=== PATIENT | male | born 1960 | race Caucasian/White ===

== ENCOUNTER → 2019-05-21 09:12 | Outpatient (CLI) | payer BC ==
[~2019-05-21 09:12] MED LIST: BAYER CHEWABLE81 MG PO; K-TAB10 MEQ PO; LIPITOR10 MG PO; LOPRESSOR25 MG PO; PERCOCET 5-3251 TAB PO; PLAVIX75 MG PO
[2019-07-02 09:41] VITALS: BMI 30.4
== END | disposition home or self-care (01) ==
LOC: D.HCCARDIO 09:12
PROVIDERS: ATTEND Internal Medicine Cardiovascular Disease
DX: R06.00 Dyspnea, unspecified (principal)

== ENCOUNTER 2019-06-18 11:09 | Outpatient (CLI) | payer BC ==
[~2019-06-18] VITALS: Ht 185.4 cm; Wt 102.7 kg
--- NOTE | ~2019-06-18 | HEMODYNAMI ---
PATIENT:LAKISHA SANTAMARIA MEDICAL RECORD: [id number] : 56 LOCATION:[facility] ADMISSION DATE: 06/18/19 Generatedon:06/18/201914:12 Patient name: LAKISHA SANTAMARIA Patient #: [id number] SSN: : 1960 Date of study: 06/18/2019 Page: Of Hemodynamic Procedure Report Patient Data Patient Demographics Procedure consent was obtained First Name: LAKISHA Gender: Male Last Name: HINA : 1960 Patient #: [id number] Age: 59 year(s) Race: Unknown Additional ID: [id number] Contact details [address]: [address] [place] [address] State: [place] City: [place] Zip code: [address] Admission Admission Data Admission Date: 06/18/2019 Admission Time: 11:09 Height (in.): 73 BSA: 2.27 (m2) Height (cm.): 185.42 BMI: 29.87 (kg/m2) Weight (lbs.): 226.42 Weight (kg.): 102.7 Lab Results Lab Result Date: 06/18/2019 Lab Result Time: 0:00 Biochemistry Name Units Result Min Max BUN mg/dl 13 --(--*-)-- 7 18 Creatinine mg/dl 1 --(--*-)-- 0.6 1.3 eGFR ml/min 81 *-(----)-- 90 120 NONAFRICAN CBC Name Units Result Min Max Hemoglobin g/dl 15.7 --(--*-)-- 13.5 17.5 Procedure Procedure Types Cath Procedure Diagnostic Procedure LHC LHC w/Coronaries Sedation Charges Moderate Sedation up to 15 minutes Procedure Description Procedure Date Procedure Date: 06/18/2019 Procedure Start Time: 13:58 Procedure End Time: 14:10 Procedure Staff Name Function Matty Singh MD Performing Physician Giovanni Webster RT Monitor Almita Sosa RN Nurse Samantha Berger RT Scrub Procedure Data Cath Procedure Fluoroscopy Diagnostic fluoroscopy Total fluoroscopy Time: 3.1 time: 3.1 min min Diagnostic fluoroscopy Total fluoroscopy dose: 949 dose: 949 mGy mGy Contrast Material Contrast Material Type Amount (ml) Isovue 300 95 Entry Location Entry Primary Successful Side Size Upsize Upsize Entry Closure Gonzales ccessful Closure Location (Fr) 1 (Fr) 2 (Fr) Remarks Device Remarks Radial Right 6 Fr Mechanical artery Short Compression Estimated blood loss: 10 ml Diagnostic catheters Device Type Used For End Catheter Placement DIAGNOSTIC Amos 110cm Procedure 5Fr catheter ([id number]) Procedure Complications No complications Procedure Medications Medication Administration Route Dosage 0.9% NaCl I.V. 100 ml/hr Oxygen etCO2 Nasal cannula 2 l/min Lidocaine 2% added to field 20 Heparin Flush Bag added to field 2 bags (1000units/500ml NS) Radial Cocktail added to field 1 syringe (Verapamil 2mg/Nitro 400mcg/Heparin 1500units) Versed I.V. 2 mg Fentanyl I.V. 50 mcg Versed I.V. 2 mg Fentanyl I.V. 50 mcg Hemodynamics Rest BSA: 2.27 (m2) HGB: 15.7 (g/dl) O2 Consumption: Estimated: 277.85 (ml/min) O2 Co nsumption indexed: Estimated:122.4 (ml/min/m) Heart Rate: 83 (bpm) Pressure Samples Time Site Value (mmHg) Purpose Heart Use Rate(bpm) 14:00 LV 150/6,21 Snapshot 77 14:01 AO 123/75(93) Pullback 78 14:01 LV 139/8,23 Pullback 78 14:02 AO 106/75(91) Snapshot 78 Gradients Valve Time Site 1 Site 2 Mean SEP/DFP Peak To Heart Use (mmHg) (sec/min) Peak Rate (mmHg) (bpm) Aortic 14:01 LV AO 10 6 16 78 139/8,23 123/75(93) Calculations Valve P-P Mean Valve Index Valve Source Name Gradient Area Flow (cm2) Aortic 16 10 16 10 Snapshots Pre Cath Intra NCS Post Cath Vital Signs Time Heart Resp SPO2 etCO2 NIBP (mmHg) Rhythm Pain Sedation Rate (ipm) (%) (mmHg) Status Level (bpm) 13:45:38 86 12 100 33.7 147/85(124) NSR 0 (11) 10(A) , No pain 13:49:54 76 16 100 33.7 134/80(105) NSR 0 (11) 10(A) , No pain 13:54:11 74 16 100 33.7 134/84(107) NSR 0 (11) 10(A) , No pain 13:58:26 71 17 99 29.9 124/79(94) NSR 0 (11) 10(A) , No pain 14:02:43 75 10 97 38.1 116/68(86) NSR 0 (11) 10(A) , No pain 14:06:57 78 14 98 32.2 116/70(89) NSR 0 (11) 10(A) , No pain 14:11:06 84 16 100 34.4 123/81(99) NSR 0 (11) 10(A) , No pain Medications Time Medication Route Dose Verified Delivered Reason Notes E ffectiveness by by 13:45:50 0.9% NaCl I.V. 100 Matty Almita used for ml/hr Francisco Sosa abstract manager 13:45:57 Oxygen etCO2 2 l/min Matty Almita used for Nasal Francisco Sosa procedure cannula RN 13:46:01 Lidocaine 2% added 20ml Matty Matty for local to vial Francisco Singh MD anesthetic field 13:46:06 Heparin Flush added 2 bags Matty Matty used for Bag to Francisco Singh MD procedure (1000units/500ml field NS) 13:46:11 Radial Cocktail added 1 Matty Matty used for (Verapamil to syringe Francisco Singh MD procedure 2mg/Nitro field 400mcg/Heparin 1500units) 13:56:50 Versed I.V. 2 mg Matty Almita for Francisco Sosa sedation RN 13:56:55 Fentanyl I.V. 50 mcg Matty Almita for Francisco Sosa sedation RN 14:02:00 Versed I.V. 2 mg Matty Almita for Francisco Sosa sedation RN 14:02:03 Fentanyl I.V. 50 mcg Matty Almita for Francisco Sosa sedation groundskeeping maintenance worker Log Time Note 13:14:32 Giovanni Webster RT(R) sent for patient. Start room use. 13:14:33 Time tracking: Regular hours (M-F 7:00 - 5:00) 13:14:36 Plan of Care:Hemodynamics will remain stable., Cardiac rhythm will remain stable., Comfort level will be maintained., Respiratory function will remain adequate., Patient/ family verbilizes understanding of procedure., Procedure tolerated without complication., Recovers from procedure without complications.. 13:39:42 Patient received from Pre/Post Procedure Room to CCL 2 Alert and oriented. Tansferred to table in Supine position. 13:39:46 Signed procedure consent form obtained from patient. 13:39:47 Warm blankets applied, and edgar hugger turned on for patient comfort. 13:39:48 Correct patient and procedure confirmed by team. 13:39:48 ECG and BP/O2 sat monitors applied to patient. 13:44:32 Vital chart was started 13:45:06 Baseline sample Acquired. 13:45:10 Rhythm: sinus rhythm 13:45:11 Full Disclosure recording started 13:45:16 H&P Date Dictated: 06/18/2019 New H&P dictated by physician.. 13:45:17 Pre-procedure instructions explained to patient. 13:45:18 Pre-op teaching completed and patient verbalized understanding. 13:45:20 Family in patients room. 13:45:22 Patient NPO since Midnight. 13:45:23 Is the patient allergic to Iodine/contrast media? No. 13:45:35 Is patient on blood thinner?No 13:45:39 ACC The patient was administered the following blood thiners within the last 24 hours: None 13:45:41 Patient diabetic? No. 13:45:43 Previous problem with sedation/anesthesia? No ? 13:45:44 Snore? Yes 13:45:45 Sleep apnea? No 13:45:46 Deviated septum? No 13:45:47 Opens mouth fully? Yes 13:45:47 Sticks out tongue? Yes 13:45:49 Airway obstruction? No ? 13:45:50 0.9% NaCl 100 ml/hr I.V. was administered by Almita Sosa RN; used for procedure; 13:45:54 Dentures? Yes PARTIAL OUT 13:45:57 Oxygen 2 l/min etCO2 Nasal cannula was administered by Almita Sosa RN; used for procedure; 13:46:00 Pre procedure: right dorsailis pedis pulse 1+ Palpable, but thready & weak; easily obliterated 13:46:01 Lidocaine 2% 20ml vial added to field was administered by Matty Singh MD; for local anesthetic; 13:46:01 Modified Flo's test Ulnar < 7 seconds 13:46:03 Patient pain scale 0/10 ?. 13:46:06 Heparin Flush Bag (1000units/500ml NS) 2 bags added to field was administered by Matty Singh MD; used for procedure; 13:46:11 Radial Cocktail (Verapamil 2mg/Nitro 400mcg/Heparin 1500units) 1 syringe added to field was administered by Matty Singh MD; used for procedure; 13:46:15 IV patent on arrival in right forearm with 0.9% NaCl at [facility]. 13:46:17 Lab results completed and on chart. 13:46:20 Right Radial & Right Groin area was prepped with chlora-prep and draped in sterile fashion 13:46:21 Alarms reviewed by R. N. 13:46:22 Sharps counted by scrub and verified by R.N. 13:46:31 Patient Height : 73 inches 13:46:33 Patient Weight : 226.42 lbs 13:47:42 Lab Result : eGFR NONAFRICAN 81 ml/min 13:47:42 Lab Result : Hemoglobin 15.7 g/dl 13:47:42 Lab Result : BUN 13 mg/dl 13:47:42 Lab Result : Creatinine 1 mg/dl 13:47:52 2) 60-89 Mildly reduced kidney function, and other findings (as for stage 1) point to kidney disease. 13:48:26 Maximum allowable contrast dose (3.7 X eGFR X 0.75)224 ml. 13:48:33 Use device set Radial Dx or PCI 13:48:35 Tegaderm 4 x 4 (1626W) opened to sterile field. 13:48:35 ACIST Manifold (92453) opened to sterile field. 13:48:36 ACIST Hand Control (40771) opened to sterile field. 13:48:38 Bag Decanter () opened to sterile field. 13:48:38 Medline Cath Pack ([id number]) opened to sterile field. 13:48:39 ACIST Syringe (64826) opened to sterile field. 13:48:40 MBrace Wrist Support ([id number]) opened to sterile field. 13:48:41 NEEDLE Cook 21G 4cm Radial (Y90952) opened to sterile field. 13:48:43 EMERALD Guide Wire (231-019) opened to sterile field. 13:48:44 SHEATH 6FR RAIN (0264136) opened to sterile field. 13:53:29 --------ALL STOP TIME OUT------ 13:53:29 Final Timeout: patient, procedure, and site verified with staff and physician. All members of the team are in agreement. 13:53:32 Right Radial & Right Groin site verified by team. 13:53:35 Fire Safety Assessment: A--An alcohol-based skin anteseptic being used preoperatively., C--Open oxygen or nitrous oxide is being used., D--An ESU, laser, or fiber-optic light is being used. 13:53:38 Physical assessment completed. ASA score P 2 - A patient with mild systemic disease as per Matty Singh MD. 13:53:41 Sedation plan: IV Moderate Sedation Medication:Versed, Fentanyl 13:56:50 Versed 2 mg I.V. was administered by Almita Sosa RN; for sedation; 13:56:55 Fentanyl 50 mcg I.V. was administered by Almita Sosa RN; for sedation; 13:57:57 Procedure started. 13:58:03 Local anesthetic to right radial artery with Lidocaine 2% by Matty Singh MD.INITIAL ACCESS ONLY 13:58:25 A 6 Fr Short sheath was inserted into the Right Radial artery 13:59:43 A DIAGNOSTIC Amos 110cm 5Fr catheter ([id number]) was advanced over the wire and used for Procedure. 14:00:30 LV angiography performed. 14:00:32 LV gram done using BANERJEE 14:00:34 LV hemodynamics recorded. 14:00:50 EF : 60 % 14:00:53 Injector settings: Ml/sec: 5, Volume: 15, 14:01:59 LCA angiography performed. 14:02:00 Versed 2 mg I.V. was administered by Almita Sosa RN; for sedation; 14:02:03 Fentanyl 50 mcg I.V. was administered by Almita Sosa RN; for sedation; 14:04:45 RCA angiography performed. 14:04:48 ACCDominant side:Co-Dominant 14:08:15 Catheter removed. 14:08:17 ZEPHYR REGULAR TR BAND (116487) opened to sterile field. 14:08:45 Sheath removed intact; hemostasis achieved with Mechanical Compression to the Right Radial artery. 14:08:47 Procedure ended.(Physican Out) 14:09:02 Fluoroscopy time 03.10 minutes. 14:09:06 Fluoroscopy dose: 949 mGy 14:09:06 Flurop Dose total: 949 14:09:22 Dose Area Product 93448 mGy/cm. 14:09:30 Contrast amount:Isovue 300 95ml. 14:09:32 Maximum allowable dose exceeded? No. 14:09:33 Sharps counted by scrub and verified by R.N. 14:09:34 Insertion/operative site no bleeding no hematoma. 14:09:40 Post Procedure Pulses reassessed and unchanged 14:09:42 Post-procedure physical assessment completed. ASA score P 2 - A patient with mild systemic disease as per Matty Singh MD. 14:09:45 Post procedure rhythm: unchanged. 14:09:47 Estimated blood loss: 10 ml 14:09:49 Post procedure instruction explained to patient.Patient verbalizes understanding. 14:09:49 Patient needs reinforcement of post procedure teaching. 14:09:57 Procedure type changed to Cath procedure, Diagnostic procedure, LHC, LHC w/Coronaries, Sedation Charges, Moderate Sedation up to 15 minutes 14:09:58 Procedure and supply charges have been captured, reviewed, submitted and are correct. 14:10:00 Procedure Complication : No complications 14:10:42 Vital chart was stopped 14:10:42 See physician's report for complete and final results. 14:10:44 Report given to Pre/Post Procedure Room. 14:10:51 Patient transfered to Pre/Post Procedure Room with Stretcher. 14:10:53 Procedure ended. 14:10:53 Full Disclosure recording stopped 14:12:10 End room use (Document Last) Device Usage Item Name Manufacture Quantity Catalog Hospital Part Current Minima l Lot# / Number Charge Number Stock Stock Serial# Code Tegaderm 4 3M 1 1626W [id number] [id number] 5 x 4 (1626W) ACIST Acist 1 30657 309146 268117 172709 5 Manifold Medical (11182) Systems Inc ACIST Hand Acist 1 74296 482066 213959 473167 5 Control Medical (38088) Systems Inc Bag Microtek 1 2001S 948096 82007 638140 5 Decanter Medical Inc. () Medline Medline 1 [id number] 601719 47945 601062 5 Cath Pack ([id number]) ACIST Acist 1 95068 781905 332434 350365 20 Syringe Medical (78570) Systems Inc MBrace Advanced 1 140-0250-00 276692 08984 410319 5 Wrist Vascular Support Dynamics ([id number]) NEEDLE Cook Cook Medical 1 [id number] 229330 845683 796640 5 21G 4cm Radial (Q94326) EMERALD Cardinal 1 157-612 104030 532481 472197 5 Guide Wire Health (271-052) SHEATH 6FR Cardinal 1 3852251 652892 7315202 892138 5 RAIN Health (5199348) DIAGNOSTIC Terumo 1 40-7399 754175 069705 878161 5 Amos 110cm 5Fr catheter (896659) ZEPHYR Cardinal 1 466985 434190 3366515 690085 5 REGULAR TR Health BAND (216743) Signature Audit [place] Stage Time Signature Unsigned Intra-Procedure 06/18/2019 Giovanni Webster 2:12:24 PM RT(R) Signatures Performing Physician : Signature : Matty Singh MD Date : Time : Monitor : Giovanni Webster RT Signature : Date : Time : Nurse : Almita Sosa RN Signature : Date : Time : [facility] [address] [place] [address]
[2019-06-18] MEDS ORDERED: LIPITOR10 MG PO (11:36)
[2019-06-18 11:47] VITALS: BP 141/92; Ht 185.4 cm; Wt 102.7 kg
[2019-06-18 12:09] LABS: HEMATOCRIT 45.4 % (42.0-54.0); HEMOGLOBIN 15.7 g/dL (13.5-17.5); LYMPHOCYTES 31.4 % (15-50); MCH 29.1 pg (26.0-34.0); MCHC 34.6 g/dL (31.0-37.0); MCV 84.1 fL (80.0-100.0); MEAN PLATELET VOLUME 9.7 fL (7.4-10.4); NEUTROPHILS 60.5 % (40-80); PLATELET COUNT 227 10x3/uL (130-400); RDW 13.3 % (11.5-14.5); WBC 7.9 10x3/uL (4.8-10.8)
[2019-06-18 12:14] LABS: ALT (SGPT) 27 U/L (10-68); CALC OSMOLALITY 279 mosm/kg (275-300); CALCIUM 8.4 mg/dL (8.5-10.1); CARBON DIOXIDE 27.8 mmol/L (21.0-32.0); CHLORIDE - SERUM 106 mmol/L (98-107); CHOL - HDL RATIO 2.5 ratio (2.3-4.9); CHOLESTEROL, TOTAL 128 mg/dL (0-200); GLUCOSE 86 mg/dL (74-106); HDL CHOLESTEROL 52 mg/dL (32-96); LDL CHOLESTEROL 63 mg/dL (0-100); LDL-HDL RATIO 1.2 ratio (1.5-3.5); SODIUM 141 mmol/L (136-145); TRIGLYCERIDE 69 mg/dL (30-200); UREA NITROGEN 13 mg/dL (7-18); eGFR NON AFRICAN AMERICAN 81 mL/min (90-120)
--- NOTE | 2019-06-18 14:33 | NUR ---
RECEIVED PT FROM SCHOOL AIDE. PT DENIES ANY C/O PAIN OR NAUSEA. RESP WITH EASE ON O2 AT 1 LPM VIA NC. Z BAND IS CDI TO RIGHT WRIST, NO BLEEDING OR HEMATOMA NOTED. FINGERS WARM AND CAP REFILL IS BRISK. WRIST IMMOBILIZER IN PLACE. NSR, RATE IS 71. BP IS 120/73. CALL LIGHT IN REACH.
--- NOTE | 2019-06-18 14:38 | NUR ---
SANDWICH AND PO FLUIDS AT BEDSIDE, PT ALERT AND VISITING WITH EX- IN ROOM. Z BAND CDI, FINGERS WARM AND CAP REFILL IS BRISK. NSR, RATE IS 72, BP 119/77
--- NOTE | 2019-06-18 15:06 | NUR ---
PT ALERT, DENIES ANY C/O. Z BAND IS CDI, FINGERS WARM AND CAP REFILL IS BRISK. VSS. DR LOPEZ ROUNDING WITH PT AND PT'S FAMILY MEMBER IN THE ROOM.
--- NOTE | 2019-06-18 15:36 | NUR ---
2 CC OF AIR WEANED FROM Z BAND WITH NO BLEEDING NOTED. FINGERS WARM AND CAP REFILL IS BRISK. VSS, PT SITTING UP IN BED, VISITING WITH FAMILY MEMEBER AT BEDSIDE.
--- NOTE | 2019-06-18 15:38 | NUR ---
PT HAS DEB SANDWICH WITH NO C/O NAUSEA.
--- NOTE | 2019-06-18 15:47 | NUR ---
3 CC OF AIR WEANED FROM Z BAND WITH NO BLEEDING NOTED. FINGERS WARM AND CAP REFILL IS BRISK. PT IS ALERT AND DENIES ANY C/O. VISITING WITH FAMILY MEMBER AT BEDSIDE.
--- NOTE | 2019-06-18 16:00 | NUR ---
ALL REMAINING AIR WEANED FROM Z BAND WITH NO BLEEDING OR HEMATOMA NOTED. FINGERS WARM AND PULSES PALPABLE. PT IS ALERT AND DENIES ANY C/O.
--- NOTE | 2019-06-18 16:20 | NUR ---
IV HAS BEEN DC'D WITH CATH INTACT AND NURSE ASSISTED PT WITH DRESSING FOR DC TO HOME. 2X2 AND TEGADERM ARE CDI TO CATH SITE. WRIST IMMOBILIZER IN PLACE. PULSES PALPABLE, PT DENIES ANY NV DEFICIT.
--- NOTE | 2019-06-18 16:30 | NUR ---
DC INSTRUCTIONS REVIEWED WITH PT AND FAMILY MEMBER, KAILASH, VERBALIZE UNDERSTANDING OF DC INSTRUCTIONS. PT ESCORTED TO PRIVATE AUTO VIA WC BY NURSE WITH KAILASH DRIVING HIM HOME. PT HAS ALL PERSONAL BELONGINGS AND DC INSTRUCTIONS AT TIME OF DISCHARGE.
== END 2019-06-18 16:30 | disposition home or self-care (01) ==
LOC: D.CATH 11:09
PROVIDERS: ATTEND Internal Medicine Cardiovascular Disease
DX: I20.0 Unstable angina (principal); R94.30 Abnormal result of cardiovascular function study, unspecified; Z01.812 Encounter for preprocedural laboratory examination

== ENCOUNTER 2019-06-27 08:30 | Inpatient (IN) | payer BC ==
[~2019-06-27] VITALS: Ht 182.9 cm; Wt 98.6 kg
[~2019-06-27 08:30] MED LIST changes: -BAYER CHEWABLE81 MG PO; -K-TAB10 MEQ PO; -LOPRESSOR25 MG PO; -PERCOCET 5-3251 TAB PO; -PLAVIX75 MG PO
[2019-06-27 10:48] LABS: BASOPHILS 0.4 % (0-2); EOSINOPHILS 1.8 % (0-7); HEMATOCRIT 46.1 % (42.0-54.0); HEMOGLOBIN 16.1 g/dL (13.5-17.5); IMMATURE GRANULOCYTES 0.2 % (0-5); LYMPHOCYTES 27.1 % (15-50); MCH 29.7 pg (26.0-34.0); MCHC 34.9 g/dL (31.0-37.0); MCV 84.9 fL (80.0-100.0); MEAN PLATELET VOLUME 9.9 fL (7.4-10.4); MONOCYTES 7.2 % (2-11); NEUTROPHILS 63.3 % (40-80); PLATELET COUNT 255 10x3/uL (130-400); RBC 5.43 10x6/uL (4.20-6.10); RDW 13.1 % (11.5-14.5); WBC 8.3 10x3/uL (4.8-10.8)
[2019-06-27 10:57] LABS: APPEARANCE CLEAR (CLEAR); BILIRUBIN NEGATIVE (NEGATIVE); COLOR YELLOW (YELLOW); GLUCOSE NEGATIVE (NEGATIVE); KETONE NEGATIVE (NEGATIVE); NITRITE NEGATIVE (NEGATIVE); PROTEIN NEGATIVE (NEGATIVE); SPECIFIC GRAVITY 1.015 (1.005-1.020); UROBILINOGEN NORMAL (NORMAL)
[2019-06-27 10:59] LABS: APTT 30.7 SECONDS (22.8-39.4); INR 1.12 (0.85-1.17); PROTIME 13.9 SECONDS (11.6-15.0)
[2019-06-27 11:32] LABS: ALBUMIN 3.8 g/dL (3.4-5.0); ALKALINE PHOSPHATASE 75 U/L (46-116); ALT (SGPT) 27 U/L (10-68); CALC OSMOLALITY 281 mosm/kg (275-300); CALCIUM 8.5 mg/dL (8.5-10.1); CARBON DIOXIDE 30.4 mmol/L (21.0-32.0); CHLORIDE - SERUM 106 mmol/L (98-107); CHOLESTEROL, TOTAL 134 mg/dL (0-200); CREATININE - SERUM 0.8 mg/dL (0.6-1.3); GLUCOSE 85 mg/dL (74-106); PHOSPHOROUS 3.8 mg/dL (2.5-4.9); POTASSIUM - SERUM 4.9 mmol/L (3.5-5.1); PROTEIN - SERUM 6.8 g/dL (6.4-8.2); SODIUM 142 mmol/L (136-145); T4 THYROXIN - FREE 0.91 ng/dL (0.76-1.46); UREA NITROGEN 13 mg/dL (7-18); URIC ACID 4.6 mg/dL (2.6-7.2); eGFR NON AFRICAN AMERICAN > 90 mL/min (90-120)
[2019-07-01] VITALS (56 sets, daily range): BP systolic 92–133; BP diastolic 53–90; BMI 29.5; BMI 29.9
[2019-07-01] MEDS ORDERED: BAYER CHEWABLE81 MG PO (05:38)
--- NOTE | 2019-07-01 10:00 | NUR ---
PT ARRIVED FROM THE OR. PT HOOKED TO ICU MONITORS. PT ON SIMPLE MASK AT 10L VIA NC. NSR ON THE MONITOR. VSS AT THIS TIME. RIGHT IJ CVL NOTED WITH PLASMALYTE INFUSING. MIDSTERNAL AND SUBSTERBAL INCISION/DRESSING C/D/I. CT X2 Y'D AND CONNECTED TO 1 TUBE NOTED HOOKED TO 20 OF H2O SUCTION WITH NO AIR LEAK. LEFT MARIAH DRAIN COMPRESSED WITH BLOODY DRAINAGE NTOED. RIGHT RADIAL RYAN NOTED WITH A <3 SECOND CAP REFILL. FC NOTED WITH CLEAR, YELLOW URINE. PT AWAKE BUT VERY DROWSEY. VSS. CALL LIGHT IN REACH. WILL CONT POC
--- NOTE | 2019-07-01 10:30 | NUR ---
START LOW DOSE NITRO PER DR IKM
--- NOTE | 2019-07-01 14:57 | NUR ---
PT AWAKE AND CONVERSANT. VSS. TOLERATING PO FLUIDS WELL. DENIES PAIN. PULLING ABOUT 2000 ON HIS IS. CALL LIGHT IN REACH POC.
--- NOTE | 2019-07-01 17:10 | NUR ---
DR KIM AT THE PTS BEDSIDE. NO NEW ORDERS AT THIS TIME.
--- NOTE | 2019-07-01 18:40 | NUR ---
PT DANGLED AT THE BEDSIDE. PT DENIES SOB/DIZZINESS. VSS WHILE DANGLEING AND REMAINED IN NSR. WILL CONT POC.
--- NOTE | 2019-07-01 19:15 | NUR ---
Received patient resting in bed with eyes open, assessment completed per flowsheet. Patient AO x4, answers appropriately/follows instructions. S1/S2 noted NSR on telemetry, rythmic and regular. Breathing is shallow/unlabored on 2L via NC with O2 sat 98%, lung sounds clear bilateral upper and mid with diminished lower. Midline sternum/substernal incision dressing CDI. CT x2 to 20 cm suction with bloody draianage, no air leak noted. David x1 with small bloody drainage, compressed with dressing CDI. Criticore secured, small clear yellow drainage noted. R radial A-line with good waveform, wrist protector in use. Remaining pulses palpable with cap refill < 3 sec, skin warm/dry. STORE OPERATIONS ASSOCIATE in use for pain mgmt, repositioned for comfort. Denies needs at this time, see flowsheet for details. All VSS and will continue to monitor.
--- NOTE | 2019-07-01 21:00 | NUR ---
HS meds given without difficulty, denies pain or other needs at this time. Patient perfomed 1750 on IS, good cough noted. No further needs at this time, all VSS and will continue to monitor.
--- NOTE | 2019-07-01 23:05 | NUR ---
Reassessment completed per flowsheet, no changes noted from previous assessment. S1/S2 noted NSR on telemetry, rythmic and regular. Breathing is shallow/unlabored on 2L via NC with O2 sat 97%, lung sounds clear bilateral upper and mid with diminished lower. Midline sternum/substernal incision dressing CDI, no bleeding/drainage noted. CT x2 to 20 cm suction with small bloody drainage, David x1 substernal with small bloody drainage. R radial A-line with good waveform, wrist protector in use. Remaining pulses palpable with cap refill < 3 sec, skin warm/dry. Denies pain or other needs at this time, see flowsheet for details. All VSS and will continue to monitor.
[2019-07-02] VITALS (42 sets, daily range): BP systolic 101–127; BP diastolic 56–79; Ht 182.9 cm; Wt 98.6 kg
--- NOTE | 2019-07-02 01:00 | NUR ---
Patient resting in bed with eyes closed, no s/s of distress at this time. HEALTHCARE MANAGEMENT CONSULTANT in use for pain mgmt, repositioned for comfort. Denies further needs and will continue to monitor.
--- NOTE | 2019-07-02 01:30 | NUR ---
Patient awakened C/O slight nausea after using MUSHROOM PACKER, PRN Zofran given as ordered and will continue to monitor.
--- NOTE | 2019-07-02 02:58 | NUR ---
Reassessment completed per flowsheet, no changes noted from previous assessment. S1/S2 noted NSR on telemetry, rythmic and regular. Breathing is shallow/unlabored on room air with O2 sat 95%, lung sounds clear bilateral upper and mid with diminished lower. Midline sternum/Substernal incision dressing CDI, no bleeding or drainage noted. Substernal CT x2 to 20cm suction with no air leak noted, L substernal David x1 with small blood noted. All pulses palpable with cap refill < 3 sec, skin warm/dry. METAL FABRICATION SUPERVISOR in use for pain mgmt, see flowsheet for details. All VSS and will continue to monitor.
[2019-07-02 05:54] LABS: HEMATOCRIT 39.4 % (42.0-54.0); HEMOGLOBIN 13.2 g/dL (13.5-17.5); MCH 28.8 pg (26.0-34.0); MCHC 33.5 g/dL (31.0-37.0); MEAN PLATELET VOLUME 9.9 fL (7.4-10.4); RBC 4.58 10x6/uL (4.20-6.10); RDW 13.5 % (11.5-14.5); WBC 19.1 10x3/uL (4.8-10.8)
[2019-07-02 06:13] LABS: ALBUMIN 2.8 g/dL (3.4-5.0); ALKALINE PHOSPHATASE 56 U/L (46-116); ALT (SGPT) 18 U/L (10-68); BILIRUBIN - TOTAL 0.59 mg/dL (0.2-1.3); CALC OSMOLALITY 280 mosm/kg (275-300); CALCIUM 7.8 mg/dL (8.5-10.1); CARBON DIOXIDE 27.2 mmol/L (21.0-32.0); CHLORIDE - SERUM 105 mmol/L (98-107); CREATININE - SERUM 0.8 mg/dL (0.6-1.3); GLUCOSE 123 mg/dL (74-106); PROTEIN - SERUM 5.6 g/dL (6.4-8.2); SODIUM 140 mmol/L (136-145); UREA NITROGEN 14 mg/dL (7-18); eGFR NON AFRICAN AMERICAN > 90 mL/min (90-120)
--- NOTE | 2019-07-02 07:30 | NUR ---
UP IN CHAIR AT BEDSIDE, WITH ASSISTANCES OF 2 NURSE. TOLERATED FAIR. ALERT ABLE TO STAND WITH MINIMAL ASSISTANCES. CHEST TUBES X 2 INTACT TO 20 CM SUCTION. MARIAH DRAIN COMPRESSED WITH BLOODY DRAINAGE. DRESSING MID CHEST AND SUBSTERNAL DRY AND INTACT. JHA CATH PATENT DRAINING CLEAR NEERU URINE. LEFT IJ DOUBLE LUMEN INFUSING WITH ZINCEF AND PLAMALYTE AT 100 ML HOUR. MONITOR SR. DILAUDID STORAGE WHARFAGE CLERK CONTROLLING PAIN.
--- NOTE | 2019-07-02 08:00 | NUR ---
NO DISTRESS. TOLERATING UP IN CHAIR WELL.
--- NOTE | 2019-07-02 09:00 | NUR ---
REGULAR BREAKFAST SERVED. ATE FEW BITES. NO NAUSEA. NOT PASSING GAS
--- NOTE | 2019-07-02 10:00 | NUR ---
HERE. UPDATE GIVEN. JAYLAN WITH DR. KIM OFFICE HERE. ORDERS RECEIVED
--- NOTE | 2019-07-02 11:15 | NUR ---
RYAN RIGHT RADIAL REMOVED. PRESSURE HELD. NO BLEEDING OR HEMATOMA AT SITE. PRESSURE DRESSING PLACE. RADIAL PULSE PALABLE. LUNCH TRAY SERVED
--- NOTE | 2019-07-02 12:00 | NUR ---
ZINCEF COMPLETED. RIGHT IJ SALINE LOCKED. PATIENT TOLERATED WELL ATE FEW BITES AT LUNCH. NO DISTRESS.
--- NOTE | 2019-07-02 13:00 | NUR ---
DR. KIM HERE ORDERS RECEIVED TO DISCONTINUE JHA CATH. PATIENT TOLERATAED. FAIR. CHEST TUBES TO WATER SEAL DRAINAGE.
--- NOTE | 2019-07-02 13:50 | OP ---
PATIENT NAME: LAKISHA SANTAMARIA MEDICAL RECORD: [id number] :56 LOCATION:D.CVI D.CV07 ADMISSION DATE:07/01/19 SURGEON: MICHEAL KIM MD DATE OF OPERATION: 07/01/2019 SURGEON: Micheal Kim MD CHILD & ADOLESCENT PSYCHIATRIST: Lev Ribeiro. OPERATION PERFORMED: Off pump coronary artery bypass graft times 1 (left internal mammary artery to LAD). 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 ANESTHESIA: General endotracheal anesthesia. ESTIMATED BLOOD LOSS: 200 cc. COMPLICATIONS: None. SPECIMENS: None. CONDITION: Stable. DISPOSITION: CV ICU. OPERATIVE FINDINGS: 1. Good quality left internal mammary artery, normal AMIE with trace mitral and tricuspid regurgitation. 2. LAD 2.0 mm, competitive LAD flow noted. Good Doppler signal after anastomosis. OPERATIVE INDICATION: Proximal LAD stenosis with myocardial bridging, not amenable to percutaneous intervention. DESCRIPTION OF PROCEDURE: The patient was brought to the operating suite. General anesthesia was obtained, the patient was prepped and draped. Median sternotomy incision was made. Subcutaneous tissue divided with electrocautery. Sternum was divided with a saw. Left hemisternum was elevated. Pleural cavity was entered. Left internal mammary artery and vein was taken down the pedicle graft. Sterile tourniquet was placed. Heparin was given. The internal mammary was divided and made ready for anastomosis. Pericardium was opened. Heart was elevated on a laparotomy pad. The vessel was stabilized with the off pump retraction system and after the activated clotting time was appropriately elevated, the vessel was inflow occluded and then opened, briefly allowed to restore flow. Good competitive flow was noted. Standard distal anastomosis was performed. Flow was restored. Good Doppler signal was noted and flow was restored. Pedicle was tacked to the heart. Protamine was given. An opening was made in the left pericardium to allow the internal mammary artery to lay OPERATIVE REPORT [id number] LAKISHA SANTAMARIA slightly to the left and then the left chest was evacuated. Lung was reinflated. Drains were placed in the mediastinum and left pleural cavity. Pericardial fat was loosely reapproximated. The internal mammary harvest site was inspected for bleeding. Sternum was closed with wires. Fascia was closed. Subcutaneous tissue was closed. Skin was closed. Dermabond was placed. Needle and sponge counts were reported as correct. The patient was taken to the ICU in stable condition. TRANSINT:[id number] Voice Confirmation ID: [id number] DOCUMENT ID: [id number] MICHEAL KIM MD at 1350 CC: OSVALDO LOPEZ M.D. and NORMA ROCA MD [id number] DICTATION DATE: 07/01/19 1023 HOUSE STEWARD/STEWARDESS: 07/01/19 1241 ADM IN [place] [id number] [place] [address]
--- NOTE | 2019-07-02 14:00 | NUR ---
PHYSICAL THERAPY HERE AMBULATED IN [place]. TOLERATED FAIR. PAIN MEDS EFFECTIVE.
--- NOTE | 2019-07-02 14:27 | NUR ---
SITTING IN CHAIR AT BEDSIDE NAPPING. NO DISTRESS NOTED
--- NOTE | 2019-07-02 16:00 | NUR ---
HERE, DR. KIM HERE TALKED WITH PATIENT AND . NO DISTRESS. RESP DEEP AND REGULAR. CHEST TUBES TO WATER SEAL DRAINAGE.
--- NOTE | 2019-07-02 18:00 | NUR ---
RETURNED TO BED. STANDING WITH MINIMAL ASSISTANCES. WALKED TO BATHROOM UNABLE TO VOID. URINAL AT BEDSIDE. CHEST TUBES INTACT TO WATER SEAL DRAINAGE. SERSANG DRAINAGE. MARIAH BULB COMPRESSED. SCD TO LOWER LEGS. RIGHT IJ CENTRAL LINE SALINE LOCKED. PAIN MEDS GIVEN. DRESSINGS DRY AND INTACT. HEAD OF BED ELEVATED 30 DEGREE. NURSE CALL LIGHT IN HAND
--- NOTE | 2019-07-02 19:00 | NUR ---
REPORT RECEIVED FROM OFF GOING NURSE. PT IS LAYING IN BED AT THIS TIME WITH EYES CLOSED. WAKENS EASILY. PT DENIES NEEDS AT THIS TIME. INITIAL ASSESSMENT COMPLETED, SEE FLOWSHEET FOR DETAILS. NO SIGNS OF ACUTE DISTRESS. VSS. WILL CONTINUE TO MONITOR.
--- NOTE | 2019-07-02 21:00 | NUR ---
PT IS LAYING IN BED WITH EYES CLOSED AT THIS TIME. PM MEDICATIONS GIVEN, SEE EMAR FOR DETAILS. PT DENIES NEEDS AT THIS TIME. NO SIGNS OF ACUTE DISTRESS. WILL CONTINUE TO MONITOR.
--- NOTE | 2019-07-02 23:00 | NUR ---
REASSESSMENT COMPLETED, SEE FLOWSHEET FOR DETAILS. PT IS LAYING IN BED WITH EYES CLOSED. NO NEEDS VOICED AT THIS TIME. NO SIGNS OF ACUTE DISTRESS. WILL CONTINUE TO MONITOR.
[2019-07-03] VITALS (24 sets, daily range): BP systolic 109–146; BP diastolic 70–99
--- NOTE | 2019-07-03 01:00 | NUR ---
PT IS RESTING IN BED WITH EYES CLOSED. NO NEEDS VOICED. NO SIGNS OF ACUTE DISTRESS. WILL CONTINUE TO MONITOR.
--- NOTE | 2019-07-03 03:00 | NUR ---
REASSESSMENT COMPLETED, SEE FLOWSHEET FOR DETAILS. PT IS RESTING IN BED WITH EYES CLOSED. NO NEEDS VOICED. NO SIGNS OF ACUTE DISTRESS. WILL CONTINUE TO MONITOR.
--- NOTE | 2019-07-03 05:00 | NUR ---
PT IS RESTING IN BED WITH EYES CLOSED AT THIS TIME. NO NEEDS VOICED. NO SIGNS OF ACUTE DISTRESS. WILL CONTINUE TO MONITOR.
[2019-07-03 06:13] LABS: MCH 28.8 pg (26.0-34.0); MCHC 33.3 g/dL (31.0-37.0); MCV 86.5 fL (80.0-100.0); RBC 4.51 10x6/uL (4.20-6.10); RDW 13.7 % (11.5-14.5); WBC 18.1 10x3/uL (4.8-10.8)
[2019-07-03 06:29] LABS: ALBUMIN 2.5 g/dL (3.4-5.0); ALKALINE PHOSPHATASE 59 U/L (46-116); ALT (SGPT) 19 U/L (10-68); BILIRUBIN - TOTAL 0.58 mg/dL (0.2-1.3); CALC OSMOLALITY 279 mosm/kg (275-300); CALCIUM 8.3 mg/dL (8.5-10.1); CARBON DIOXIDE 29.8 mmol/L (21.0-32.0); CHLORIDE - SERUM 104 mmol/L (98-107); CREATININE - SERUM 0.8 mg/dL (0.6-1.3); GLUCOSE 120 mg/dL (74-106); PROTEIN - SERUM 5.6 g/dL (6.4-8.2); SODIUM 140 mmol/L (136-145); UREA NITROGEN 12 mg/dL (7-18); eGFR NON AFRICAN AMERICAN > 90 mL/min (90-120)
--- NOTE | 2019-07-03 07:54 | NUR ---
REPORT RECEIVED. PT WAS GETTING BREATHING TREATMENT AT TIME OF BEDSIDE. LATER ASSISTED FROM BED TO CHAIR WITH NO DIFFICULTY. BREAKFAST TRAY HAS BEEN PROVIDED. PT DENIES ANY ADDIONAL NEEDS. CALL LIGHT IN REACH.
--- NOTE | 2019-07-03 13:43 | NUR ---
DR ROCA AT BEDSIDE AT THIS TIME WITH PT AND
--- NOTE | 2019-07-03 17:46 | MORECARE ---
CASE MANAGEMENT DISCHARGE SUMMARY PATIENT: LAKISHA SANTAMARIA UNIT: [id number] ADM DATE: 07/01/19 AGE: 59 : 56 SEX: M [facility] AUTHOR: MANDA HONEYCUTT PHYSICIAN: REFERRING PHYSICIAN: AIDEN KIM MD DATE OF SERVICE: 07/03/19 Discharge Plan Patient Name: LAKISHA SANTAMARIA Facility: [facility]:[place] : 1960 Planned Disposition: Home Anticipated Discharge Date: Discharge Date: Expected LOS: Initial Reviewer: [email or web address] Initial Review Date: 07/03/2019 Generated: 07/03/19 6:46 pm Patient Name: LAKISHA SANTAMARIA Page [id number] at 174 All edits/amendments must be made on the electronic document DICTATION DATE: 07/03/191745 ENGINEERING DESIGN MANAGER: GAYATRI 07/03/191745 RPT#: [id number] DC DATE: STATUS: ADM IN [facility] [address] [place] [address] END OF REPORT
--- NOTE | 2019-07-03 17:56 | MORECARE ---
CASE MANAGEMENT DISCHARGE SUMMARY PATIENT: LAIKSHA SANTMAARIA UNIT: [id number] ADM DATE: 07/01/19 AGE: 59 : 56 SEX: M ROOM/BED: D[facility] AUTHOR: MANDA HONEYCUTT PHYSICIAN: REFERRING PHYSICIAN: AIDEN KIM MD DATE OF SERVICE: 07/03/19 Discharge Plan Patient Name: LAKISHA SANTAMARIA Facility: [facility]:[place] : 1960 Planned Disposition: Home Anticipated Discharge Date: Discharge Date: Expected LOS: Initial Reviewer: [email or web address] Initial Review Date: 07/03/2019 Generated: 07/03/19 6:56 pm Comments DCP- Discharge Planning Updated by [email or web address]: Mally Sadler on 07/03/19 4:[address] Patient Name: LAKISHA SANTAMARIA Admission Status: Elective Accout number: [id number] Admission Date: 07-01-2019 : 1960 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 Patient lives at home with his significant other Kailash where he is independent with his care and plans to return there upon discharge. Patient feels this would be a safe discharge. CM discussed availability / needs of home health and medical equipment. Patient denies any discharge needs at this time. Patient states he will have his family drive him home upon discharge. CM will continue to follow and assist as needed with discharge planning / needs. Digital Measurement Advisor: Mally Sadler DCPIA - Discharge Planning Initial Assessment Updated by [email or web address]: Mally Sadler on 07/03/19 5:53 pm * Is the patient Alert and Oriented? Yes * How many steps to enter\exit or inside your home? 6-14 * PCP ABELINO * Pharmacy [facility] * Preadmission Environment Home with Family * ADLs Independent * Other Equipment [place] * List name and contact numbers for known caregivers / representatives who currently or will assist patient after discharge: KAILASH VICKI - [facility] OTHER- [phone], * Verbal permission to speak to the caregivers and representatives has been obtained from the patient. Yes * Community resources currently utilized None * Additional services required to return to the preadmission environment? No * Can the patient safely return to the preadmission environment? Yes * Has this patient been hospitalized within the prior 30 days at any hospital? No Last DP export: 07/03/19 4:46 p Patient Name: LAKISHA SANTAMARIA Page [id number] at 1756 All edits/amendments must be made on the electronic document DICTATION DATE: 07/03/191755 HYPERBARIC NURSE: GAYATRI 07/03/191755 RPT#: [id number] DC DATE: STATUS: ADM IN [facility] [address] [place] [address] END OF REPORT
--- NOTE | 2019-07-03 19:00 | NUR ---
REPORT RECIEVED, PT AAOX4, RESTING IN BED. ASSESSMENT COMPLETED, SEE FLOWSHEET. PT ON ROOM AIR, VITALS STABLE, WILL CONTINUE TO MONITOR.
--- NOTE | 2019-07-03 21:00 | NUR ---
PT REPORTS FEELING "FLUSHED," TEMP TAKEN, 98.4 ORALLY. NO ACUTE DISTRESS NOTED.
--- NOTE | 2019-07-03 23:00 | NUR ---
PT RESTING IN BED, AAOX4. NO ACUTE DISTRESS NOTED. WILL CONTINUE TO MONITOR.
[2019-07-04] VITALS (21 sets, daily range): BP systolic 107–140; BP diastolic 73–98
--- NOTE | 2019-07-04 01:00 | NUR ---
PT RESTING IN BED, VITALS STABLE. WILL CONTINUE TO MONITOR.
--- NOTE | 2019-07-04 03:00 | NUR ---
PT AAOX4, NO ACUTE DISTRESS NOTED.
[2019-07-04 05:46] LABS: HEMATOCRIT 40.4 % (42.0-54.0); HEMOGLOBIN 13.6 g/dL (13.5-17.5); MCH 28.9 pg (26.0-34.0); MCHC 33.7 g/dL (31.0-37.0); MCV 85.8 fL (80.0-100.0); MEAN PLATELET VOLUME 9.9 fL (7.4-10.4); RBC 4.71 10x6/uL (4.20-6.10); RDW 13.5 % (11.5-14.5); WBC 14.8 10x3/uL (4.8-10.8)
[2019-07-04 06:17] LABS: ALBUMIN 2.6 g/dL (3.4-5.0); ALKALINE PHOSPHATASE 69 U/L (46-116); BILIRUBIN - TOTAL 0.71 mg/dL (0.2-1.3); CALC OSMOLALITY 276 mosm/kg (275-300); CALCIUM 8.3 mg/dL (8.5-10.1); CARBON DIOXIDE 28.5 mmol/L (21.0-32.0); CHLORIDE - SERUM 102 mmol/L (98-107); CREATININE - SERUM 0.8 mg/dL (0.6-1.3); GLUCOSE 113 mg/dL (74-106); POTASSIUM - SERUM 3.8 mmol/L (3.5-5.1); PROTEIN - SERUM 6.2 g/dL (6.4-8.2); SODIUM 138 mmol/L (136-145); UREA NITROGEN 12 mg/dL (7-18); eGFR NON AFRICAN AMERICAN > 90 mL/min (90-120)
[2019-07-04 06:23] LABS: ALT (SGPT) 24 U/L (10-68)
--- NOTE | 2019-07-04 10:04 | NUR ---
Nutrition Follow-up: CABG on 07/01 Diet: Regular PO intake: 50-75% Wt: 216# Last BM: 06/30 Labs noted: Glu 113 Meds noted: Ulices Steward May consider cardiac diet. RD following.
[2019-07-04] MEDS ORDERED: PERCOCET 5-3251 TAB PO (10:36)
--- NOTE | 2019-07-04 17:17 | NUR ---
0700-RECIEVED AWAKE ALERT-UP IN CHAIR-ROOM AIR 1030-DR KIM AT [facility] AND SPOKE WITH PT REGARDIGN CURRENT PROGRESS AND PLAN OF ACTION-PT APPEARS TO UNDERSTAND 1330-AMBULATED WITH PHYSICAL THERAPY AND ASSISTED TO BED- 1700-FAMILY AT BEDSIDE-
--- NOTE | 2019-07-04 19:00 | NUR ---
REPORT RECIEVED, PT RESTING IN BED, AAOX4. ASSESSMENT COMPLETED, SEE FLOWSHEET. RT IJ CVL TO SL, CDI. DENIES SOB, VITALS STABLE. WILL CONTINUE TO MONITOR.
--- NOTE | 2019-07-04 21:09 | NUR ---
PM MEDS ADMINISTERED WITHOUT DIFFICULTY. PT IS VERY TALKATIVE, NO SIGNS OF ACUTE DISTRESS NOTED, WILL CONTINUE TO MONITOR.
--- NOTE | 2019-07-04 23:00 | NUR ---
PT RESTING IN BED, NO ACUTE DISTRESS NOTED.
[2019-07-05] VITALS (11 sets, daily range): BP systolic 104–123; BP diastolic 70–84
--- NOTE | 2019-07-05 01:00 | NUR ---
PT AAOX4, VITALS STABLE, RESTING IN BED. NO ACUTE DISTRESS NOTED. WILL CONTINUE TO MONITOR.
--- NOTE | 2019-07-05 03:00 | NUR ---
PT RESTING QUIETLY IN BED, VITALS STABLE. WILL CONTINUE TO MONITOR.
--- NOTE | 2019-07-05 05:00 | NUR ---
PT UP IN CHAIR, AAOX4. VITALS STABLE, CHG BATH GIVEN, NO ACUTE DISTRESS NOTED.
[2019-07-05 05:53] LABS: HEMATOCRIT 40.8 % (42.0-54.0); HEMOGLOBIN 13.7 g/dL (13.5-17.5); MCH 28.9 pg (26.0-34.0); MCHC 33.6 g/dL (31.0-37.0); MCV 86.1 fL (80.0-100.0); MEAN PLATELET VOLUME 9.9 fL (7.4-10.4); RBC 4.74 10x6/uL (4.20-6.10); RDW 13.7 % (11.5-14.5)
[2019-07-05 05:58] LABS: WBC 10.4 10x3/uL (4.8-10.8)
[2019-07-05 06:16] LABS: ALBUMIN 2.4 g/dL (3.4-5.0); ALKALINE PHOSPHATASE 82 U/L (46-116); ALT (SGPT) 57 U/L (10-68); CALC OSMOLALITY 279 mosm/kg (275-300); CALCIUM 8.4 mg/dL (8.5-10.1); CARBON DIOXIDE 27.5 mmol/L (21.0-32.0); CHLORIDE - SERUM 103 mmol/L (98-107); CREATININE - SERUM 0.8 mg/dL (0.6-1.3); GLUCOSE 136 mg/dL (74-106); POTASSIUM - SERUM 3.4 mmol/L (3.5-5.1); SODIUM 139 mmol/L (136-145); UREA NITROGEN 13 mg/dL (7-18); eGFR NON AFRICAN AMERICAN > 90 mL/min (90-120)
--- NOTE | 2019-07-05 07:19 | NUR ---
RECIEVED AWAKE AND ALERT UP I CHAIR-RESP RX IN PROGRESS
--- NOTE | 2019-07-05 08:16 | NUR ---
QUALIFY PHARMACY CHOICE: [facility] NEW NAME [facility] SAME FAX AND PRIMARY NUMBER-NOT ACCESSIBLE [facility] AT THIS TIME
--- NOTE | 2019-07-05 10:56 | NUR ---
DR KIM AT BEDSIDE -SPEAKING WITH PT REGARDING DISCHARGE CARE
[2019-07-05] MEDS ORDERED: PLAVIX75 MG PO (11:03)
[2019-07-05] MEDS ORDERED: LOPRESSOR25 MG PO (11:04)
[2019-07-05] MEDS ORDERED: K-TAB10 MEQ PO (11:05)
--- NOTE | 2019-07-05 12:55 | NUR ---
1130-R CVL REMOVED PER PROTOCOL-CHEST DRG REMOVED INCISION CLEAN AND INTACT WITH NO DRAINAGE-SPOKE WITH BOTH AND PT REGARDING-WOUND CARE-LOPRESSOR ADN PLAVIX(PROVIDED PRINTED INFO)-FOLLOW UP APPOINTMENTS REVIEWED-TO TREAT STERNUM LIKE A BROKEN BONE-NO SIDE SLEEPING-NO STOMACH SLEEPING-NOT TO SIT FOR LONG PERIODS WITHOUT GETTING UP AND MOVING-AND PRESCRIPTIONS AT PHARMACY AND WHICH MEDICATIONS TO CONTINUE-PT APPEARS TO COMPREHEND-ADDRESSED WIFES FREQUENT QUESTIONS
--- NOTE | 2019-07-07 09:18 | MORECARE ---
CASE MANAGEMENT DISCHARGE SUMMARY PATIENT: LAKISHA SANTAMARIA UNIT: [id number] ADM DATE: 07/01/19 AGE: 59 : 56 SEX: M ROOM/BED: D[facility] AUTHOR: MANDA HONEYCUTT PHYSICIAN: REFERRING PHYSICIAN: AIDEN KIM MD DATE OF SERVICE: 07/07/19 Discharge Plan Patient Name: LAKISHA SANTAMARIA Facility: [facility]:[place] : 1960 Planned Disposition: Home Anticipated Discharge Date: Discharge Date: 07/05/2019 Expected LOS: Initial Reviewer: [email or web address] Initial Review Date: 07/03/2019 Generated: 07/07/19 10:18 am DCP- Discharge Planning Updated by [email or web address]: Mally Sadler on 07/03/19 4:[address] Patient Name: LAKISHA SANTAMARIA Admission Status: Elective Accout number: [id number] Admission Date: 07-01-2019 : 1960 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 Patient lives at home with his significant other Kailash where he is independent with his care and plans to return there upon discharge. Patient feels this would be a safe discharge. CM discussed availability / needs of home health and medical equipment. Patient denies any discharge needs at this time. Patient states he will have his family drive him home upon discharge. CM will continue to follow and assist as needed with discharge planning / needs. Ruby On Rails Engineer: Mally Sadler DCPIA - Discharge Planning Initial Assessment Updated by [email or web address]: Mally Sadler on 07/03/19 5:53 pm * Is the patient Alert and Oriented? Yes * How many steps to enter\exit or inside your home? 6-14 * PCP ABELINO * Pharmacy [facility] * Preadmission Environment Home with Family * ADLs Independent * Other Equipment [place], [place] * List name and contact numbers for known caregivers / representatives who currently or will assist patient after discharge: KAILASHCARMEN VELAZCO OTHER- [phone], * Verbal permission to speak to the caregivers and representatives has been obtained from the patient. Yes * Community resources currently utilized None * Additional services required to return to the preadmission environment? No * Can the patient safely return to the preadmission environment? Yes * Has this patient been hospitalized within the prior 30 days at any hospital? No Last DP export: 07/03/19 4:56 p Patient Name: LAKISHA SANTAMARIA Page 90110 at 0918 All edits/amendments must be made on the electronic document DICTATION DATE: 07/07/19917 RESOLUTE PROFESSIONAL: GAYATRI 07/07/19917 RPT#: [id number] DC DATE:07/05/19 STATUS: DIS IN [facility] [address] [place] [address] END OF REPORT
--- NOTE | 2019-07-10 13:30 | EC ---
PATIENT:LAKISHA SANTAMARAI DATE OF SERVICE: 07/01/19 SEX: M MEDICAL RECORD: [id number] DATE OF : [birth year] LOCATION:[place] [address] AGE OF PATIENT: 59 ADMISSION DATE: 07/01/19 REFERRING PHYSICIAN: INTERPRETING PHYSICIAN: ROXIE JOYNER MD ECHOCARDIOGRAM REPORT ECHO CHARGES Date: 07/01/19 CLINICAL DIAGNOSIS: ECHOCARDIOGRAPHIC MEASUREMENTS (adult normal given) AC root (d.<3.7cm) cm LV Septum d (<1.2 cm> cm Valve Excursion cm LV Septum (systole) cm Left Atria (s.<4.0cm> cm LVPW d(<1.2cm) cm RV (d.<2.3cm) cm LVPW (sytole) cm LV diastole(<5.6CM) cm MV E-F(>70mm/sec) cm LV systole cm LVOT Diameter cm MV exc.(>10mm) cm Est.ejection fraction (50-75%) % DOPPLER: LVIT cm/sec A cm/sec E cm/sec LA 3.5 cm/sec RVSP mmHg LVOT cm/sec AOP1/2T m/s Asc. Ao cm/sec RVOT cm/sec RA cm/sec PA cm/sec AV Gradient Peak mmHg AV Mean mmHg AV Area cm MV Gradient Peak mmHg MV Mean mmHg MV Area cm COMMENTS: JULIO AND JESSICA PATIENT Field Installation Technician: Zaira FROST Clinical Microbiologist: Ania Joyner TAPE# PACS Pericardial Effusion DATE OF SERVICE: PROCEDURE: Transesophageal echo evaluation of valvular structures during bypass surgery. FINDINGS: 1. Left ventricular chamber size is within normal limits. Left ventricular systolic function is normal. Overall ejection fraction estimated at 55% to 60%. 2. Left atrium, right atrium, right ventricular chamber sizes are within normal limits. ECHOCARDIOGRAM REPORT [id number] LAKISHA SANTAMARIA 3. Valvular structures have normal structure and motion. 4. Doppler interrogation only reveals mild tricuspid regurgitation, no other valvular insufficiency or stenosis. 5. No evidence of pericardial effusion or left ventricular thrombus. TRANSINT:[id number] Voice Confirmation ID: [id number] DOCUMENT ID: [id number] ROXIE JOYNER MD at 1330 CC: [id number] DICTATION DATE: 07/01/191806 INTERVENTIONAL RADIOLOGY TECHNOLOGIST: 07/02/19 0154 DIS IN 07/05/19 [facility] [address] [place] [address]
== END 2019-07-05 13:01 | disposition home or self-care (01) | DRG 236 ==
LOC: D.SDCHOLD 08:30 → D.CVICU 07-01 05:00 → D.SDCHOLD 07-01 05:00 → D.CVICU 07-01 09:48
PROVIDERS: ADMIT Thoracic Surgery (Cardiothoracic Vascular Surgery); ATTEND Thoracic Surgery (Cardiothoracic Vascular Surgery)
PROC: 02100Z9 Bypass Coronary Artery, One Artery from Left Internal Mammary, Open Approach (ICD-10-PCS; principal; 2019-07-01 07:30)
DX: I25.810 Atherosclerosis of coronary artery bypass graft(s) without angina pectoris (principal); Q24.5 Malformation of coronary vessels; E78.00 Pure hypercholesterolemia, unspecified; E78.5 Hyperlipidemia, unspecified